=== PATIENT | female | born 1985 | race African-American/Black ===

== ENCOUNTER 2023-08-06 11:43 | Emergency (ER) | payer MEDICAID, SELFPAY ==
[2023-08-06] MEDS ORDERED: Ketorolac Tromethamine 60 MG/2 ML VIAL ONE (12:03)
== END 2023-08-06 12:31 | disposition home or self-care (01) ==
LOC: NAV ERS 11:43
DX: J10.1 Influenza due to other identified influenza virus with other respiratory manifestations (principal); I10 Essential (primary) hypertension
CPT/HCPCS: 96372; 99283; J1885